=== PATIENT | female | born 1970 | race Caucasian/White ===

== ENCOUNTER 2022-04-21 17:22 | Emergency (ER) | payer OTHER ==
[~2022-04-21] VITALS: Ht 160 cm; Wt 65.8 kg
[2022-04-21 17:29] VITALS: BP 137/74
[2022-04-21] MEDS ORDERED: LORA10SG1 PO (19:54)
[2022-04-21] MEDS ORDERED: DIPH25TA53 PO (19:54)
--- NOTE | 2022-04-21 19:59 | NUR ---
NO NURSING INTERVENTIONS REQUIRED.
[2022-04-21 20:00] VITALS: BP 137/74
--- NOTE | 2022-04-21 20:00 | NUR ---
Patient discharged with v/s stable. Written and verbal after care instructions given and explained. Patient alert, oriented and verbalized understanding of instructions. Ambulatory with steady gait. All questions addressed prior to discharge. ID band removed. Patient advised to follow up with PMD. Rx of BENADRYL AND LORATADINE given. Patient educated on indication of medication including possible reaction and side effects. Opportunity to ask questions provided and answered.
== END 2022-04-21 20:00 | disposition home or self-care (01) ==
LOC: MED 17:22
DX: R21 Rash and other nonspecific skin eruption (principal); E07.9 Disorder of thyroid, unspecified; Z88.1 Allergy status to other antibiotic agents; Z79.899 Other long term (current) drug therapy
CPT/HCPCS: 99282